=== PATIENT | female | born 1960 | race African-American/Black ===

== ENCOUNTER 2017-09-24 10:30 | Emergency (ER) | payer OTHER ==
[~2017-09-24] VITALS: Ht 167.6 cm; Wt 99.8 kg
[2017-09-24 12:03] LABS: BASOPHIL COUNT 0.1 K/uL (0-0.1); EOSINOPHIL (%) 4.9 % (0-5); EOSINOPHIL COUNT 0.4 K/uL (0-0.3); IMMATURE GRANULOCYTE (%) 0.3 % (0.0-0.7); INSTRUMENT ABS NEUTROPHIL CT 4.8 K/uL; LYMPHOCYTE COUNT 1.8 K/uL (1.0-2.8); MCH 29.6 PG (29.0-34.0); MCV 92.6 FL (83-99); MEAN PLAT.VOLUME 10.8 uM^3 (9.5-12.4); MONOCYTE (%) 10.4 % (3-12); MONOCYTE COUNT 0.8 K/uL (0-0.8); NEUTROPHIL (%) 60.3 % (45-76); NEUTROPHIL COUNT 4.8 K/uL (1.8-6.4); PLATELET COUNT 293 K/uL (156-360); RBC DIS.WIDTH-CV 14.1 % (11.8-14.6); RBC DIS.WIDTH-SD 47.8 % (39-53); RED BLOOD COUNT 3.24 M/uL (3.80-5.20)
[2017-09-24 12:12] LABS: CHLORIDE 112 mEq/L (99-109); POTASSIUM 4.2 mEq/L (3.7-5.4); SODIUM 140 mEq/L (136-147)
[2017-09-24 12:13] LABS: MAGNESIUM 2.2 mg/dL (1.3-2.7)
[2017-09-24 12:15] LABS: GLUCOSE 105 mg/dL (70-99)
[2017-09-24 12:16] LABS: ANION GAP 8 MEQ/L (2-14); TOTAL BILIRUBIN 0.3 mg/dL (0.0-1.0)
[2017-09-24 12:18] LABS: ALKALINE PHOSPHATASE 81 IU/L (3-129); GFR ESTIMATE (CALCULATED) 54 mL/min/
[2017-09-24 12:19] LABS: UREA NITROGEN (BUN) 21 mg/dL (9-23)
[2017-09-24 12:22] LABS: TROP-I INTERPRETATION NEGATIVE; TROPONIN-I < 0.01 ng/mL (0.0-0.30)
[2017-09-24] MEDS ORDERED: AMLODIPINE BESY10 MG PO (15:17)
[2017-09-24] MEDS ORDERED: AZELASTINE137 MCG/0. BOTH NARES (15:18)
[2017-09-24] MEDS ORDERED: BREO ELLIPTA I1 EACH IH (15:20)
[2017-09-24] MEDS ORDERED: BENZONATATE100 MG PO (15:20)
[2017-09-24] MEDS ORDERED: CALCIUM 500 +1 EACH PO (15:21)
[2017-09-24] MEDS ORDERED: CARVEDILOL3.125 MG PO (15:21)
[2017-09-24] MEDS ORDERED: COLACE100 MG PO (15:22)
[2017-09-24] MEDS ORDERED: DYMISTA NASAL S23 GM BOTH NARES (15:22)
[2017-09-24] MEDS ORDERED: FEOSOL325 MG PO (15:23)
[2017-09-24] MEDS ORDERED: FLONASE16 G1 BOTH NARES (15:24)
[2017-09-24] MEDS ORDERED: NEURONTIN300 MG PO (15:24)
[2017-09-24] MEDS ORDERED: LEVOCETIRIZINE D5 MG PO (15:25)
[2017-09-24] MEDS ORDERED: LOSARTAN POTAS100 MG PO (15:25)
[2017-09-24] MEDS ORDERED: METFORMIN HCL500 M1 PO (15:25)
[2017-09-24] MEDS ORDERED: PANTOPRAZOLE SO40 MG PO (15:26)
[2017-09-24] MEDS ORDERED: MOMETASONE FURO45 GM TP (15:26)
[2017-09-24] MEDS ORDERED: MONTELUKAST SOD10 MG PO (15:26)
[2017-09-24] MEDS ORDERED: GAVILAX8.5 GM PO (15:27)
[2017-09-24] MEDS ORDERED: CARAFATE100 MG/ML PO (15:28)
[2017-09-24] MEDS ORDERED: TRIAMTERENE-HC1 EAC1 PO (15:29)
[2017-09-24] MEDS ORDERED: TAMOXIFEN CITRA20 MG PO (15:29)
[2017-09-24] MEDS ORDERED: VENTOLIN HFA18 GM IH (15:29)
[2017-09-24] MEDS ORDERED: ZYRTEC10 M2 PO (15:30)
[2017-09-24] MEDS ORDERED: ERGOCALCIF50000 UNIT PO (15:30)
[2017-09-24] MEDS ORDERED: ULTRAM50 MG PO (15:35)
[2017-09-24 16:50] VITALS: BP 123/74
== END 2017-09-24 16:50 | disposition home or self-care (01) ==
LOC: EME 10:30
PROVIDERS: Emergency Medicine
DX: R07.89 Other chest pain (principal); Z98.890 Other specified postprocedural states; K21.9 Gastro-esophageal reflux disease without esophagitis; R94.6 Abnormal results of thyroid function studies; R06.00 Dyspnea, unspecified; Z95.0 Presence of cardiac pacemaker; J45.909 Unspecified asthma, uncomplicated; I10 Essential (primary) hypertension; E11.9 Type 2 diabetes mellitus without complications; Z79.84 Long term (current) use of oral hypoglycemic drugs; Z85.3 Personal history of malignant neoplasm of breast; Z87.891 Personal history of nicotine dependence
CPT/HCPCS: 71020; 80053; 83735; 84439; 84443; 84484; 85025; 93005; 99281; 99285